=== PATIENT | female | born 1995 | race Two or more races ===

== ENCOUNTER 2016-08-07 10:57 | Emergency (ER) | payer MEDICAID ==
[~2016-08-07] VITALS: Ht 162.6 cm; Wt 61.2 kg
--- NOTE | 2016-08-07 11:43 | Emergency Room Report ---
History of Present Illness General Chief Complaint: Abdominal Pain Source: Patient Present Illness HPI Patient presents with diarrhea which began 1 week ago. Green, several times/ day. Some minimal abdominal cramping. No vomiting. Slight nausea. No fevers. LNMP 2 weeks. No dysuria or d/c. No dizziness. No rashes, cough, sore throat. Son from day care had similar, better now. No travel or unusual foods. Allergies: Coded Allergies: No Known Allergies (Unverified , 08/07/16) Patient History Past Medical History: see triage record Social History Narrative works stocking for [employer] Last Menstrual Period: last month Now: No Reviewed Nursing Documentation: PMH: Agreed, PSxH: Agreed Nursing Documentation-PMH Past Medical History: No Stated History Review of Systems All Other Systems: negative except mentioned in HPI Physical Exam Vital Signs Date Time Temp Pulse Resp B/P Pulse Ox O2 Delivery O2 Flow Rate FiO2 08/07/16 11:08 97.7 73 18 97/63 98 Room Air Sp02 EP Interpretation: reviewed, normal General Appearance: well appearing, no apparent distress, GCS 15, non-toxic Head: normocephalic, atraumatic Eyes: bilateral eye PERRL, bilateral eye normal inspection ENT: hearing grossly normal, normal voice, moist mucus membranes Neck: full range of motion, supple Respiratory: no respiratory distress, speaking full sentences Gastrointestinal: non tender, soft, no mass, no organomegaly, non-distended, no guarding Musculoskeletal: gait/station normal, normal range of motion Neurologic: alert, normal gait, grossly normal Psychiatric: mood/affect normal Skin: no rash Medical Decision Making Diagnostic Impression: Primary Impression: Viral diarrhea ER Course Pt with diarrhea. DDx: food poisoning, gastroenteritis, Norovirus. Doubt C difficile as no recent antibiotics. No appear toxic at this time. No labs indicated. Clinical picture of viral cause of diarrhea - with recent Norovirus, highly suspect. Discussed treatment with patient. Advised if not doing well to return. Last Vital Signs Date Time Temp Pulse Resp B/P Pulse Ox O2 Delivery O2 Flow Rate FiO2 08/07/16 11:56 97.9 70 15 101/60 100 Room Air Status: unchanged Disposition: HOME, SELF-CARE Condition: Stable Scripts Ibuprofen* (MOTRIN*) 600 Mg Tablet 600 MG ORAL Q6H Y for For Pain, #16 TAB Prov: Main Stauffer M.D. 08/07/16 Diphenoxylate HCl/Atropine (Lomotil Tablet) 1 Each Tablet 1 EACH PO BID Y for diarrhea or cramps, #6 TAB 1 Refill Prov: Main Stauffer M.D. 08/07/16 Main Stauffer M.D. Aug 07, 2016 11:43
[2016-08-07 11:44] VITALS: BP 101/60
[2016-08-07] MEDS ORDERED: LOMOTIL TABLET1 EAC1 PO (11:46)
[2016-08-07] MEDS ORDERED: IBUPROFEN600 MG ORAL (11:46)
[2016-08-07 11:56] VITALS: BP 101/60
== END 2016-08-07 11:56 | disposition home or self-care (01) ==
LOC: EMR 11:50
DX: A08.4 Viral intestinal infection, unspecified (principal); R11.0 Nausea
CPT/HCPCS: 99284